=== PATIENT | male | born 1975 | race Two or more races ===

== ENCOUNTER 2020-09-08 05:38 | Emergency (ER) | payer BC, OTHER ==
[~2020-09-08] VITALS: Ht 177.8 cm; Wt 88.5 kg
[2020-09-08 06:48] VITALS: BP 136/82
[2020-09-08] MEDS ORDERED: traMADol HCL 50 MG TAB PO ONE (07:00)
== END 2020-09-08 08:29 | disposition home or self-care (01) ==
LOC: EDBD 05:38 → ER 05:38
DX: S43.401A Unspecified sprain of right shoulder joint, initial encounter (principal); S16.1XXA Strain of muscle, fascia and tendon at neck level, initial encounter; S80.812A Abrasion, left lower leg, initial encounter; M25.561 Pain in right knee; H53.8 Other visual disturbances; V43.52XA Car driver injured in collision with other type car in traffic accident, initial encounter; Y93.I9 Activity, other involving external motion; Y92.89 Other specified places as the place of occurrence of the external cause; Y99.8 Other external cause status
CPT/HCPCS: 73030; 73080; 73110